=== PATIENT | male | born 1950 | race Caucasian/White ===

== ENCOUNTER 2019-08-23 15:40 | Outpatient (CLI) | payer BC ==
--- NOTE | 2019-08-24 04:07 | XRAY Report ---
Reason: COUGH Procedure Date: 08/23/2019 Accession Number: [id number] / [id number] Procedure: XR - Chest 2 View X-Ray CPT Code: 38680 Final Report FULL RESULT: EXAM: CHEST RADIOGRAPHY EXAM DATE: 08/23/2019 03:59 PM CLINICAL HISTORY: Cough. COMPARISON: 10/01/2011 6:19 AM. TECHNIQUE: 2 views. FINDINGS: Lungs/Pleura: Clear lungs. No pleural effusion. No pneumothorax. Mediastinum: Within exam limitations, the cardiomediastinal contour is normal. Other: None. IMPRESSION: Clear lungs. No acute cardiopulmonary process. RADIA
== END 2019-08-23 15:41 | disposition home or self-care (01) ==
LOC: DI 15:40
PROVIDERS: ATTEND Nurse Practitioner Family
DX: R05 Cough (principal)
CPT/HCPCS: 71046

== ENCOUNTER 2020-11-29 08:00 | Outpatient (CLI) | payer MEDICARE, OTHER ==
--- NOTE | 2020-11-29 13:02 | XRAY Report ---
PROCEDURE: Ankle 3 View RT INDICATIONS: RIGHT ANKLE JOINT PAIN TECHNIQUE: 3 views of the ankle were acquired. COMPARISON: None FINDINGS: Bones: Nonacute, comminuted fracture of the distal fibula. Ankle mortise is normally aligned. No brandt picious bony lesions. Soft tissues: No tibiotalar joint effusion. Achilles tendon appears normal. IMPRESSION: Nonacute, comminuted distal right fibular fracture. Reviewed by: Peggy Red MD, PhD on 11/29/2020 1:01 PM PDT Approved by: Peggy Red MD, PhD on 11/29/2020 1:01 PM PDT Station ID: [id number]
== END 2020-11-29 23:59 | disposition home or self-care (01) ==
LOC: DI 08:00
PROVIDERS: ATTEND Family Medicine
DX: S82.831A Other fracture of upper and lower end of right fibula, initial encounter for closed fracture (principal)

== ENCOUNTER 2020-11-29 12:00 | Outpatient (CLI) | payer BC | END 2020-11-29 23:59 | disposition home or self-care (01) | LOC: LAB 12:00 | PROVIDERS: ATTEND Family Medicine | DX: N40.1 Benign prostatic hyperplasia with lower urinary tract symptoms (principal) | CPT/HCPCS: 36415; 84153 ==

== ENCOUNTER 2021-03-02 08:00 | Outpatient (CLI) | payer MEDICARE, OTHER | END 2021-03-02 23:59 | disposition home or self-care (01) | LOC: LAB.S 08:00 | PROVIDERS: ATTEND Emergency Medicine | DX: L02.413 Cutaneous abscess of right upper limb (principal) | CPT/HCPCS: 87070; 87077; 87205 ==

== ENCOUNTER 2022-08-30 07:00 | Outpatient (CLI) | payer MEDICARE, OTHER ==
--- NOTE | 2022-08-30 14:08 | XRAY Report ---
PROCEDURE: Foot 3 View LT INDICATIONS: LEFT FOOT PAIN TECHNIQUE: 3 views of the foot were acquired. COMPARISON: None. FINDINGS: Bones: No fractures or dislocations. Mild degenerative changes. Tiny plantar calcaneal spur. No brandt picious bony lesions. Soft tissues: No suspicious soft tissue calcifications or masses. IMPRESSION: Mild left foot degenerative changes. Reviewed by: Osmin Bishop MD on 08/30/2022 2:07 PM PDT Approved by: Osmin Bishop MD on 08/30/2022 2:07 PM PDT Station ID: [id number]
== END 2022-08-30 23:59 | disposition home or self-care (01) ==
LOC: DI.S 07:00
PROVIDERS: ATTEND Nurse Practitioner
DX: M19.072 Primary osteoarthritis, left ankle and foot (principal)

== ENCOUNTER 2023-04-16 08:07 | Outpatient (CLI) | payer MEDICARE, OTHER ==
--- NOTE | 2023-04-16 10:45 | MRI Report ---
PROCEDURE: MRI lumbar spine without contrast INDICATIONS: LUMBAR RADICULOPATHY TECHNIQUE: Multiplanar multisequential MRI images of the lumbar spine were obtained without intraven ous contrast. COMPARISON: None. FINDINGS: Alignment and Curvature: There is normal bony alignment. Bone Marrow: Marrow is of normal overall signal. No acute vertebral body compression fractures. No sacral fractures. Spinal Cord: Conus medullaris terminates at the L1 level. Visualized cord demonstrates normal signa l and size. Paraspinal Soft Tissues: Unremarkable perivertebral soft tissues. T12-L1: Normal in appearance. L1-L2: Normal in appearance. L2-L3: Normal in appearance. L3-L4: Disc height is preserved. Circumferential disc bulge with mild central stenosis. Moderate bi lateral foraminal stenosis. L4-L5: Disc space narrowing with circumferential disc bulge and ligamentum flavum laxity results in moderate central stenosis. Hypertrophic facet joints result in severe left and moderate right forami nal stenosis L5-S1: Disc space narrowing with circumferential disc bulge. No central stenosis. Hypertrophic face t joints result in severe left and moderate right foraminal stenosis IMPRESSION: Multilevel degenerative disc disease and arthropathy results in varying degrees of central and forami nal stenosis including severe left foraminal stenosis L4-5 and L5-S1 Reviewed by: Daniel Higgins MD on 04/16/2023 9:44 AM NAKUL Approved by: Daniel Higgins MD on 04/16/2023 9:44 AM [place] Station ID: [id number]
== END 2023-04-16 08:08 | disposition home or self-care (01) ==
LOC: DI 08:07
PROVIDERS: ATTEND Physical Medicine & Rehabilitation
DX: M47.26 Other spondylosis with radiculopathy, lumbar region (principal); M51.16 Intervertebral disc disorders with radiculopathy, lumbar region; M48.061 Spinal stenosis, lumbar region without neurogenic claudication; M48.07 Spinal stenosis, lumbosacral region